=== PATIENT | female | born 1985 | race Hispanic/Latino ===

== ENCOUNTER 2021-04-25 17:02 | Emergency (ER) | payer MEDICARE, OTHER ==
[~2021-04-25] VITALS: Ht 162.6 cm; Wt 65.8 kg
[2021-04-25 17:08] VITALS: BP 170/78
[2021-04-25 18:00] VITALS: BP 164/76
[2021-04-25 18:06] LABS: BASOPHILS % (AUTO) 0.7 % (0.0-5.0); EOSINOPHILS % (AUTO) 0.7 % (0.0-8.0); HEMATOCRIT 34.5 % (36-48); LYMPHOCYTES % (AUTO) 16.8 % (21.0-51.0); MEAN CORPUSCULAR HEMOGLOBIN 25.9 pg (27.0-33.0); MEAN CORPUSCULAR VOLUME 78.4 fL (79-99); MONOCYTES % (AUTO) 9.7 % (3.0-13.0); NEUTROPHILS % (AUTO) 70.5 % (40.0-77.0); PLATELET COUNT (AUTO) 348 K/uL (130-400); RED CELL DISTRIBUTION WIDTH 15.5 % (11.0-15.5); WHITE BLOOD COUNT (AUTO) 12.2 K/uL (4.8-10.8)
[2021-04-25 18:15] LABS: CARBON DIOXIDE 18 mmol/L (21-32); CHLORIDE 100 mmol/L (101-111); CREATININE 2.2 mg/dL (0.5-1.5); GLOMERULAR FILTR. RATE CALC 27 mL/min (>60); GLUCOSE,RANDOM 391 mg/dL (70-105); POTASSIUM 4.6 mmol/L (3.5-5.1); SODIUM SERUM 134 mmol/L (136-145); UREA NITROGEN, BLOOD 17 mg/dL (7-18)
[2021-04-25 18:19] LABS: ALANINE AMINOTRANSFERASE 21 U/L (12-78); ALBUMIN 3.8 g/dL (3.5-5.0); ALCOHOL, BLOOD < 3 mg/dL (0-10); ASPARTATE AMINOTRANSFERASE 18 U/L (10-37); BILIRUBIN,TOTAL 0.3 mg/dL (0.2-1.0); TOTAL PROTEIN, SERUM 7.8 g/dL (6.0-8.3)
[2021-04-25 18:20] LABS: ACETAMINOPHEN < 1 mcg/mL (10-30); SALICYLATE < 2.8 mg/dL (2.8-20.0)
[2021-04-25] MEDS ORDERED: SOLU-MEDROL 125MG VIAL IVP SCH (20:00)
[2021-04-25] MEDS: FAMOTIDINE 20MG VIAL IV SCH ×2 (20:00→21:44)
[2021-04-25] MEDS ORDERED: KETOROLAC 15MG/ML VIAL (15MG/ML) IV SCH (20:00)
[2021-04-25 20:02] LABS: APPEARANCE,URINE Clear (CLEAR); BILIRUBIN,URINE Negative (NEGATIVE); COLOR,URINE Yellow (YELLOW); GLUCOSE, URINE (UA) >=1000 mg/dL (NEGATIVE); KETONES,URINE Negative (NEGATIVE); LEUKOCYTE ESTERASE ,URINE Negative (NEGATIVE); NITRATE,URINE Negative (NEGATIVE); OCCULT BLOOD,URINE Negative (NEGATIVE); PH,URINE 5.5 (5.0-8.0); PROTEIN,URINE POS 1+ mg/dL (NEGATIVE); UROBILINOGEN,URINE 0.2 mg/dL (0.2-1.0)
[2021-04-25 20:10] LABS: AMPHET/METH SCREEN,URINE NEGATIVE (NEGATIVE); BARBITURATE SCREEN, URINE NEGATIVE (NEGATIVE); BENZODIAZEPINES SCREEN,URINE POSITIVE (NEGATIVE); CANNABINOID SCREEN,URINE NEGATIVE (NEGATIVE); COCAINE SCREEN,URINE NEGATIVE (NEGATIVE); OPIATE SCREEN,URINE NEGATIVE (NEGATIVE); PHENCYCLIDINE SCREEN,URINE NEGATIVE (NEGATIVE)
[2021-04-25 20:15] LABS: BACTERIA,URINE Rare /HPF (None Seen); MUCUS,URINE Few LPF (None Seen); RBC,URINE 0-1 /HPF (0-1); SQUAMOUS EPITHELIAL CELL,UR Few /HPF (0-2)
[2021-04-25] MEDS ORDERED: HYDROCODONE/ACETAMINOPHEN 10/325 MG TAB PO SCH (20:30)
[2021-04-25] MEDS ORDERED: 0.9%NACL 1000ML 1,000 ML IV SCH (20:30)
[2021-04-25] MEDS ORDERED: LORAZEPAM 2 MG/ML 1 ML VIAL IVP ONE (23:00)
[2021-04-26 00:29] VITALS: BP 134/72
[2021-04-26] MEDS ORDERED: LORAZEPAM 1 MG TABLET ONE (00:53)
[2021-04-26] MEDS ORDERED: LORAZEPAM 2 MG TABLET PO ONE (01:00)
== END 2021-04-26 01:02 | disposition home or self-care (01) ==
LOC: EDH 17:02
DX: M54.30 Sciatica, unspecified side (principal); F13.20 Sedative, hypnotic or anxiolytic dependence, uncomplicated; R25.9 Unspecified abnormal involuntary movements; F31.9 Bipolar disorder, unspecified; E86.0 Dehydration; F41.9 Anxiety disorder, unspecified; E11.9 Type 2 diabetes mellitus without complications; Z98.84 Bariatric surgery status
CPT/HCPCS: 36415; 70450; 74176; 80053; 80305; 81001; 81025; 82010; 83605; 85025; 85651; 86140; 93005; 96361; 96374; 96375; 99285; G0481; J1885; J2060; J2930; J3490; J7030